=== PATIENT | female | born 1980 | race Caucasian/White ===

== ENCOUNTER 2021-04-25 12:49 | Inpatient (IN) | payer OTHER ==
[~2021-04-25] VITALS: Ht 162.6 cm; Wt 100.6 kg
[2021-05-09] VITALS (12 sets, daily range): BP systolic 123–141; BP diastolic 74–87; PULSE 78–95; TEMP 98–98.4
[2021-05-09] MEDS ORDERED: DESYREL 100MG100 MG PO (05:48)
--- NOTE | 2021-05-09 06:23 | NUR ---
Patient states that she had moles removed approximately two weeks ago and has scabs on the sites that are healing.
--- NOTE | 2021-05-09 19:30 | NUR ---
Pt. sitting up in bed. Pt. is a&OX3, assessment complete. IV to lt. hand patent. Pt. reports pain to abd at a 7 on pain scale. Pt. has a WOOD TYPE FINISHER of dilauidid. Abd. incisions x5 with bandaids, BRANDO with serorsanguinous drainage noted. Pt. denies further needs, call light within reach.
[2021-05-10] VITALS (7 sets, daily range): BP systolic 132–145; BP diastolic 84–93; PULSE 70–84; TEMP 98–98.9
[2021-05-10 06:55] LABS: BASO % 0.2 % (0.0-2.0); EOS # 0.1 K/mm3 (0.0-0.7); EOS % 0.6 % (0.0-4.0); GRAN # 8.4 K/mm3 (1.4-6.5); GRAN % 76.8 % (42.2-75.2); HEMOGLOBIN 11.5 g/dl (12.5-16.0); LYMPH # 1.6 K/mm3 (1.2-3.4); MEAN CELL VOLUME 81 fl (80.0-100.0); MEAN CORPUSCULAR HEMOGLOBIN 27 pg (27-31); MEAN CORPUSCULAR HGB CONC 34 g/dl (33.0-37.0); MEAN PLATELET VOLUME 10.1 fl (7.4-10.4); MONO # 0.8 K/mm3 (0.1-0.6); PLATELET COUNT 290 K/mm3 (130-400); RED BLOOD COUNT 4.21 M/mm3 (4.10-5.30); REDCELL DISTRIBUTION WIDTH-CV 13.1 % (11.5-14.5)
[2021-05-10 07:13] LABS: ALBUMIN 3.6 gm/dL (3.5-5.0); BILIRUBIN,TOTAL 0.3 mg/dL (0.2-1.2); CALCIUM 8.2 mg/dL (8.4-10.2); CREATININE, serum 0.78 mg/dL (0.57-1.11); TOTAL PROTEIN 6.8 gm/dL (6.2-8.1)
--- NOTE | 2021-05-10 10:01 | NUR ---
Social Work student and TRINIDAD Tello met with patient to discuss discharge planning. Patient's emergency contact listed is her , Desmond (ph#[phone]). Patient's primary care physician is Dr. Ross out of [place]. Patient receives his medications from [facility] in [place]. Patient does not utilize any durable medical equiptment, nor does she use any oxygen at home. Patient states she is independent with her ADL's. Patient does not have a DPOA-HC filled out. Patient is legally . Discharge plan: Home
--- NOTE | 2021-05-10 12:47 | NUR ---
PT REQUESTS COLD WET WASHCLOTH FOR HER FOREHEAD, STATES THAT SHE "JUST DOESN'T FEEL GOOD", APPEARS PALE ET DROWSY. PT HAS BEEN UP TO WALK IN ROOM X2 THIS MORNING, ENCOURAGED TO CALL WHEN READY TO TAKE ANOTHER WALK, VERBALIZES UNDERSTANDING. PT HAD EARLIER STATED THAT SHE FELT ITCHY, EDUCATED ON USE OF BENADRYL ET AVAILABILITY, REFUSES @ THIS TIME. PT DENIES OTHER NEEDS. CALL LIGHT WITHIN REACH.
--- NOTE | 2021-05-10 13:47 | NUR ---
First visit from the customer sales consultant. No needs right now.
--- NOTE | 2021-05-10 14:42 | NUR ---
PT USES CALL LIGHT ET REQUESTS TO WALK. PT AGREES TO WALK IN HALLWAY BRIEFLY, GROANS WHEN GETTING IN ET OUT OF BED, REQUIRES MODERATE ASSISTANCE. PT IS STANDBY ASSIST WHILE AMBULATING. GAIT IS VERY SLOW BUT STEADY, IS HESITANT WITH ANY MOVEMENT. PT AMBULATES APPROXIMATELY 50 FT ET RETURNS TO BED. PT DENIES NEEDS, STATES THAT SHE NEEDS TO BE STILL FOR A FEW MINUTES. IVF ET FILLER SIFTER MACHINE PUMP INFUSING. DACOSTA CATH DRAINING DEPENDENTLY. CALL LIGHT WITHIN REACH.
--- NOTE | 2021-05-10 20:30 | NUR ---
Pt. sitting up in bed. Pt. is A&OX3, assessment complete. INT to rt. hand patent, IV to lt. hand with IV fluids infusing per orders. abd. incisions CDI. BRANDO drain with serosanguinous drainage noted. Pt. able to void after conley removed. Pt. reports pain at a 7 on pain scale, giving pain meds per orders. Pt. denies further needs, call light within reach.
[2021-05-11] VITALS (7 sets, daily range): BP systolic 127–152; BP diastolic 80–111; PULSE 81–128; TEMP 97.4–98.7
[2021-05-11 06:57] LABS: BASO % 0.2 % (0.0-2.0); EOS # 0.2 K/mm3 (0.0-0.7); EOS % 1.9 % (0.0-4.0); GRAN # 6.2 K/mm3 (1.4-6.5); GRAN % 70.8 % (42.2-75.2); HEMOGLOBIN 11.5 g/dl (12.5-16.0); LYMPH # 1.9 K/mm3 (1.2-3.4); LYMPH % 21.2 % (20.0-51.0); MEAN CELL VOLUME 83 fl (80.0-100.0); MEAN CORPUSCULAR HEMOGLOBIN 27 pg (27-31); MEAN CORPUSCULAR HGB CONC 33 g/dl (33.0-37.0); MEAN PLATELET VOLUME 10.4 fl (7.4-10.4); MONO # 0.5 K/mm3 (0.1-0.6); MONO % 5.7 % (1.7-9.3); PLATELET COUNT 259 K/mm3 (130-400); RED BLOOD COUNT 4.27 M/mm3 (4.10-5.30)
[2021-05-11 07:09] LABS: CALCIUM 8.7 mg/dL (8.4-10.2); CREATININE, serum 0.78 mg/dL (0.57-1.11)
[2021-05-11 07:28] LABS: HEMATOCRIT 35.4 % (37.0-47.0)
[2021-05-11] MEDS ORDERED: NORCO 325 MG-51 TAB PO (10:26)
[2021-05-11] MEDS ORDERED: PRILOTC PO (10:26)
[2021-05-11] MEDS ORDERED: ZOFRAN 4MG T4 MG/TAB PO (10:26)
--- NOTE | 2021-05-11 11:49 | NUR ---
PT RESTING QUIETLY IN BED WITH PERSONAL EYE MASK. PT HAD EARLIER STATED THAT SHE HAD FINALLY FELT COMFORTABLE. PT HAS BEEN SIPPING ON WATER, WAS NAUSEOUS THIS MORNING. NAUSEA IS EXACERBATED BY MOVEMENT.
--- NOTE | 2021-05-11 13:24 | NUR ---
PT SITTING ON SIDE OF BED, JUST RETURNED TO BED FROM AMBULATING TO NURSES STATION ET BACK WITH SBA. PT STATES THAT PAIN IS TOLERABLE ET WELL CONTROLLED BUT THAT NAUSEA INCREASES WITH MOVEMENT. PT HAS NOT YET PASSEDM GAS. PT REQUESTS ASSISTANCE GETTING LEGS INTO BED. DENIES OTHER NEEDS. IVF INFUSING. CALL LIGHT WITHIN REACH.
--- NOTE | 2021-05-11 14:40 | NUR ---
PT IS SITTING UP IN RECLINER, NAUSEA IMPROVED, REQUESTS POPSICLE. SUGGESTED TO PT TO TRY ICE CHIPS INSTEAD FOR NOW R/T RECENT NAUSEA. PT VERBALIZES UNDERSTANDING.
--- NOTE | 2021-05-11 17:59 | NUR ---
IVF DCED. PT TOLERATING PO INTAKE. PERIPHERAL IV IN PT'S LEFT HAND IS SALINE LOCKED.
[2021-05-12 03:22] VITALS: BP 127/85; PULSE 85; TEMP 98.2
--- NOTE | 2021-05-12 03:27 | NUR ---
PATIENT DOING WELL TONIGHT. ALERT AND ORIENTED. C/O GAS PAIN INTERMITTENTLY THROUGHOUT NIGHT THAT WAS TREATED WITH PRN NORCO SUSPENSIONS. C/O NAUSEA AND PRN ZOFRAN GIVEN. X4 ABD LAP SITES CDI WITH BANDAIDS AND BRANDO DRAIN SITE CDI WITH SMALL AMOUNT OF BLOODY DRAINAGE. HAS BEEN INDEPENDENT IN HER ROOM. WALKED IN HALLS WITH FINANCIAL SERVICES TECHNICIAN HELP.
[2021-05-12 08:00] VITALS: BP 128/80; PULSE 92; TEMP 98.1
--- NOTE | 2021-05-12 09:40 | NUR ---
PT REPORTS PASSING A GOOD AMOUNT OF GAS EARLY THIS MORNING AND HAS RELIEVED MOST OF HER PAIN. PT ALSO HAD SMALL BM. PT PLANS TO SHOWER THIS MORNING AND HOPEFULLY DISCHARGE.
[2021-05-12 11:30] VITALS: BP 117/79; PULSE 103; TEMP 97.8
--- NOTE | 2021-05-12 13:17 | NUR ---
PT MET CRITERIA FOR DISCHARGE, VSS. PAIN CONTROLLED. BRANDO DRAIN REMOVED WITHOUT COMPLICATIONS, PRESSURE DRESSING APPLIED. LAP SITES ARE WELL APPROXIMATED WITHOUT S/S OF INFECTION. IV REMOVED WITHOUT COMPLICATIONS, CATHETER INTACT. DISCHARGE INSTRUCTIONS REVIEWED, PT VERBALIZED UNDERSTANDING. PT AWARE OF F/U APPT AND OF PRESCRIPTIONS TO DESIGNER AND PATTERNMAKER. PT DC TO HOME VIA WHEELCHAIR ACCOMPANIED BY DOCTOR OF OSTEOPATHY.
== END 2021-05-12 13:20 | disposition home or self-care (01) | DRG 621 ==
LOC: INPTSU 05-09 05:26 → SURG 05-09 05:26
PROVIDERS: ADMIT Surgery
PROC: 8E0W4CZ Robotic Assisted Procedure of Trunk Region, Percutaneous Endoscopic Approach (ICD-10-PCS; 2021-05-09)
PROC: 0D164ZA Bypass Stomach to Jejunum, Percutaneous Endoscopic Approach (ICD-10-PCS; principal; 2021-05-09 07:30)
DX: E66.01 Morbid (severe) obesity due to excess calories (principal); K21.9 Gastro-esophageal reflux disease without esophagitis; G47.33 Obstructive sleep apnea (adult) (pediatric); I10 Essential (primary) hypertension; Z68.41 Body mass index [BMI] 40.0-44.9, adult; Z87.891 Personal history of nicotine dependence
CPT/HCPCS: A4314; C9113; J0360; J0690; J1100; J1170; J1650; J1956; J2250; J2405; J2550; J2704; J3010; J3480; J7120